=== PATIENT | male | born 1980 | race Caucasian/White ===

== ENCOUNTER 2016-05-14 14:44 | Emergency (ER) | payer SELFPAY ==
--- NOTE | 2016-05-17 16:41 | ER ---
ADMIT: 05/14/2016 RM/LOC: ER [facility] MR#: [id number] [facility] [address] TAM DEMPSEY [address] [place] [address] Emergency Room Report SEX: M AGE: 36 : 1980 DATE: 05/14/2016 The patient's regular physician is Jimena Greco, Dr. Valentine. For chief complaint, history of present illness, past medical history, medications, allergies, review of systems, including physical exam, please see my T-sheet. INTERIM HISTORY: The patient is a 36-year-old white male, who presents to the emergency room with finger pain. He has red swollen fingers, uncertain exactly what he did. He tried to poke and drain it, but nothing came out. 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 PAST MEDICAL HISTORY: Negative. PHYSICAL EXAMINATION: Unremarkable excluding this erythematous area that is swollen over the volar aspect of the right middle finger. IMPRESSION: Cellulitis of the right middle finger. The patient was given Keflex. Home rest activity as tolerated. Motrin or Tylenol. The patient is in stable condition. IDALIA Ruelas / Tommy Stevenson MD / noral JOB #: [id number] CC: Tommy Stevenson MD, Attending Physician Brandon Jack MD, Family Physician
== END 2016-05-14 15:03 | disposition home or self-care (01) ==
LOC: ER 14:44
DX: L03.011 Cellulitis of right finger (principal); F17.210 Nicotine dependence, cigarettes, uncomplicated

== ENCOUNTER 2016-07-25 20:36 | Emergency (ER) | payer SELFPAY ==
--- NOTE | 2016-07-29 09:08 | ER ---
ADMIT: 07/25/2016 RM/LOC: ER [facility] MR#: [id number] [address] [place], [place] [address] TAM DEMPSEY [address] [place] [address] Emergency Room Report SEX: M AGE: 36 : 1980 DATE: 07/25/2016 ADDENDUM: Please see my T-sheet for complete review of systems, past medical history, and physical exam. CHIEF COMPLAINT: Blood in urine. HISTORY OF PRESENT ILLNESS: A 36-year-old male, who presents to the ER with a day's duration of lower abdominal and left-sided flank pain. He states he had an episode of bloody urine 2-3 hours ago. Thought he should present to the ER. He has a history of kidney stones. This feels similar to those in the past. Denies any fever, chills, nausea, vomiting, diarrhea. Does have a loss of appetite, testicular pain. Worse with movement, relieved by remaining still. History of kidney stones. COURSE IN THE EMERGENCY ROOM: The patient was seen and examined, afebrile and nontoxic. He is mildly hypertensive, 160 to 180s over 80 diastolically. He is alert. He is in mild amount of distress. He appears uncomfortable. Neck is soft and supple. Respiratory; breath sounds are clear bilaterally. Heart is regular rate and rhythm, no tachycardia. Abdomen; he does have some lower abdominal tenderness as well as some CVA tenderness on the left. Skin is warm and dry. No pedal edema. He is alert and oriented. I did get a urine on him, significant for 5684 rbc's per high power field. I did proceed with renal colic, shows a 2 mm stone at the left ureteropelvic junction. No obstructive pattern. Mild hydronephrosis on the left. He was given a liter of normal saline, 15 mg of Toradol IV as well as Zofran 4 mg IV. His pain was very well controlled with this. He is resting comfortably. He was also given a first dose of Flomax 0.4 mg p.o. prior to discharge. IMPRESSION: 1. Nephrolithiasis, renal colic. ADMIT: 07/25/2016 RM/LOC: ER [facility] MR#: [id number] [address] [place], [place] [address] TAM DEMPSEY [address] [place] [address] Emergency Room Report SEX: M AGE: 36 : 1980 2. Hypertension. DISPOSITION: The patient will be started on Flomax 0.4 mg p.o. daily until stone is passed. He was provided a script for Henderson 5/325 one to two tabs p.o. every 4-6 hours as needed for pain #20. He is to follow up with Dr. Gerson Gonzáles for the hypertension in the department tonight as he states he has had a history of this in the past and is currently not treated. He should follow up with Urology if the stone fails to pass in the next week. Cautioned him using narcotic pain medications while driving or working. Encouraged NSAIDs as primary pain control during the day. Questions sought and answered to the best of my ability and to the patient's satisfaction. Discharged in stable condition. IDALIA Guy / Jerry Garcia MD / aldo JOB #: [id number] CC: Jerry Garcia MD, Attending Physician Gerson Gonzáles MD, Family Physician
== END 2016-07-25 23:15 | disposition home or self-care (01) ==
LOC: ER 20:36
DX: N20.2 Calculus of kidney with calculus of ureter (principal); I10 Essential (primary) hypertension

== ENCOUNTER 2016-08-20 14:52 | Emergency (ER) | payer SELFPAY ==
--- NOTE | 2016-08-23 16:46 | ER ---
ADMIT: 08/20/2016 RM/LOC: ER [facility] MR#: [id number] [address] [address] TAM DEMPSEY [address] [place] [address] Emergency Room Report SEX: M AGE: 36 : 1980 DATE: 08/20/2016 ADDENDUM: A 36-year-old, white male coming in with flank pain. He has had kidney stones before he thinks this feels like the same thing. CT scan does show he has not had a kidney stone. He had a white count of 14,000; however, his urine is clear. His lactate is negative, so I think that is more of a stress reaction. Discharged home with Gregory 5/325 #20. He should see Urology within about a week. He should strain his urine as well. CONDITION ON DISCHARGE: Good. Tommy Stevenson MD/ aldo JOB #: [id number] CC: Tommy Stevenson MD, Attending Physician Cj Cervantes MD, Family Physician
== END 2016-08-20 18:45 | disposition home or self-care (01) ==
LOC: ER 14:52
DX: N20.1 Calculus of ureter (principal); I10 Essential (primary) hypertension; Z87.891 Personal history of nicotine dependence; Z79.899 Other long term (current) drug therapy